=== PATIENT | female | born 1940 | race Caucasian/White ===

== ENCOUNTER 2020-04-30 12:05 | Inpatient (IN) ==
[2020-05-01] MEDS ORDERED: Bisacodyl 10 MG RECTAL SUPPOSITORY RC PRN (18:57)
[2020-05-01] MEDS ORDERED: Insulin DETEMIR 100 UNIT/ML per UNIT SUBQ ONE (21:00)
[2020-05-01] MEDS: Metoprolol XL (24 HR) Succ 50 MG TAB.ER.24H PO SCH (21:08)
[2020-05-01] MEDS: Insulin LISPRO 300 UNITS/3 ML VIAL SUBQ SCH (21:09)
[2020-05-02 05:19] LABS: Basophils % 0.3 %; Eosinophils # 0.2 K/mcL (0.0-0.6); Eosinophils % 2.2 %; Hematocrit 25.4 % (35.3-44.9); Hemoglobin 8.4 g/dL (11.5-15.4); Immature Granulocytes % 0.3 % (0-4); Lymphocytes # 1.4 K/mcL (0.6-4.6); Mean Corpuscular HGB Conc 33.1 g/dL (31.6-35.5); Mean Corpuscular Hemoglobin 31.6 pg (28.0-33.3); Mean Corpuscular Volume 95.5 fL (83.0-100.0); Mean Platelet Volume 11.8 fL (9.4-12.4); Monocytes # 0.8 K/mcL (0.0-1.3); Monocytes % 12.3 %; Neutrophils # 4.3 K/mcL (1.6-8.9); Platelet Count 213 K/mcL (140-400); Red Blood Count 2.66 M/mcL (3.82-4.97); Red Cell Distribution Width 14.6 % (11.5-14.5); Segmented Neutrophils % 63.9 %; White Blood Count 6.7 K/mcL (4.3-11.1)
[2020-05-02 05:34] LABS: Calcium 8.7 mg/dL (8.6-10.3)
[2020-05-02] MEDS ORDERED: *HR* Enoxaparin 30 MG/0.3 ML SYRINGE SQ SCH (06:00)
[2020-05-02] MEDS: Metoprolol XL (24 HR) Succ 50 MG TAB.ER.24H PO SCH ×2 (08:28→20:31)
[2020-05-02] MEDS: Cholecalciferol (D-3) 1,000 UNIT (25MCG) TABLET PO SCH (08:28)
[2020-05-02] MEDS: lisinopriL 10 MG TABLET PO SCH (08:28)
[2020-05-02] MEDS: Magnesium Oxide 400 MG TABLET PO SCH (08:28)
[2020-05-02] MEDS: Aspirin Enteric Coated 81 MG Tablet PO SCH (08:29)
[2020-05-02] MEDS: polyethylene glycoL 3350 17 GM POWD.PACK PO SCH (08:29)
[2020-05-02] MEDS: calcitrioL 0.25 MCG CAPSULE PO SCH (08:29)
[2020-05-02] MEDS: Insulin LISPRO 300 UNITS/3 ML VIAL SUBQ SCH ×4 (08:29→20:31)
[2020-05-02] MEDS: allopurinoL 300 MG TABLET PO SCH (08:29)
[2020-05-02] MEDS: Acetaminophen 325 MG TABLET PO PRN ×2 (12:14→20:30)
[2020-05-02] MEDS: *HR* Rivaroxaban 10 MG TABLET PO SCH (16:07)
[2020-05-02] MEDS: Insulin DETEMIR 100 UNIT/ML X5UNITS SUBQ SCH (20:31)
[2020-05-03] MEDS: Insulin LISPRO 300 UNITS/3 ML VIAL SUBQ SCH ×4 (08:17→20:25)
[2020-05-03] MEDS: Magnesium Oxide 400 MG TABLET PO SCH (08:57)
[2020-05-03] MEDS: calcitrioL 0.25 MCG CAPSULE PO SCH (08:57)
[2020-05-03] MEDS: Aspirin Enteric Coated 81 MG Tablet PO SCH (08:57)
[2020-05-03] MEDS: Cholecalciferol (D-3) 1,000 UNIT (25MCG) TABLET PO SCH (08:57)
[2020-05-03] MEDS: lisinopriL 10 MG TABLET PO SCH (08:58)
[2020-05-03] MEDS: Metoprolol XL (24 HR) Succ 50 MG TAB.ER.24H PO SCH ×2 (08:58→20:22)
[2020-05-03] MEDS: polyethylene glycoL 3350 17 GM POWD.PACK PO SCH (08:58)
[2020-05-03] MEDS: Acetaminophen 325 MG TABLET PO PRN ×2 (08:58→15:36)
[2020-05-03] MEDS: allopurinoL 300 MG TABLET PO SCH (08:58)
[2020-05-03] MEDS: *HR* Rivaroxaban 10 MG TABLET PO SCH (15:36)
[2020-05-03] MEDS: Insulin DETEMIR 100 UNIT/ML X5UNITS SUBQ SCH (20:22)
[2020-05-04] MEDS: Insulin LISPRO 300 UNITS/3 ML VIAL SUBQ SCH ×4 (07:42→20:20)
[2020-05-04] MEDS: Aspirin Enteric Coated 81 MG Tablet PO SCH (07:54)
[2020-05-04] MEDS: allopurinoL 300 MG TABLET PO SCH (07:54)
[2020-05-04] MEDS: polyethylene glycoL 3350 17 GM POWD.PACK PO SCH (07:54)
[2020-05-04] MEDS: Magnesium Oxide 400 MG TABLET PO SCH (07:54)
[2020-05-04] MEDS: Metoprolol XL (24 HR) Succ 50 MG TAB.ER.24H PO SCH ×2 (07:54→20:30)
[2020-05-04] MEDS: Cholecalciferol (D-3) 1,000 UNIT (25MCG) TABLET PO SCH (07:54)
[2020-05-04] MEDS: lisinopriL 10 MG TABLET PO SCH (07:54)
[2020-05-04] MEDS: calcitrioL 0.25 MCG CAPSULE PO SCH (07:55)
[2020-05-04] MEDS: Acetaminophen 325 MG TABLET PO PRN ×2 (13:54→20:29)
[2020-05-04] MEDS: *HR* Rivaroxaban 10 MG TABLET PO SCH (16:49)
[2020-05-04] MEDS: Insulin DETEMIR 100 UNIT/ML X5UNITS SUBQ SCH (20:32)
[2020-05-05] MEDS: Acetaminophen 325 MG TABLET PO PRN ×3 (04:19→20:08)
[2020-05-05] MEDS: Insulin LISPRO 300 UNITS/3 ML VIAL SUBQ SCH ×4 (08:07→20:12)
[2020-05-05] MEDS: Metoprolol XL (24 HR) Succ 50 MG TAB.ER.24H PO SCH ×2 (08:25→20:10)
[2020-05-05] MEDS: allopurinoL 300 MG TABLET PO SCH (08:26)
[2020-05-05] MEDS: Cholecalciferol (D-3) 1,000 UNIT (25MCG) TABLET PO SCH (08:26)
[2020-05-05] MEDS: calcitrioL 0.25 MCG CAPSULE PO SCH (08:26)
[2020-05-05] MEDS: lisinopriL 10 MG TABLET PO SCH (08:26)
[2020-05-05] MEDS: Aspirin Enteric Coated 81 MG Tablet PO SCH (08:26)
[2020-05-05] MEDS: polyethylene glycoL 3350 17 GM POWD.PACK PO SCH (08:26)
[2020-05-05] MEDS: Magnesium Oxide 400 MG TABLET PO SCH (08:26)
[2020-05-05] MEDS: *HR* Rivaroxaban 10 MG TABLET PO SCH (17:11)
[2020-05-05] MEDS: Simethicone 80 MG TAB.CHEW PO PRN (18:07)
[2020-05-05] MEDS: Insulin DETEMIR 100 UNIT/ML X5UNITS SUBQ SCH (20:12)
[2020-05-06] MEDS: Aspirin Enteric Coated 81 MG Tablet PO SCH (06:57)
[2020-05-06] MEDS: Cholecalciferol (D-3) 1,000 UNIT (25MCG) TABLET PO SCH (06:58)
[2020-05-06] MEDS: Acetaminophen 325 MG TABLET PO PRN ×3 (06:59→19:58)
[2020-05-06] MEDS: allopurinoL 300 MG TABLET PO SCH (07:00)
[2020-05-06] MEDS: Metoprolol XL (24 HR) Succ 50 MG TAB.ER.24H PO SCH ×2 (07:00→19:54)
[2020-05-06] MEDS: lisinopriL 10 MG TABLET PO SCH (07:02)
[2020-05-06] MEDS: Magnesium Oxide 400 MG TABLET PO SCH (07:02)
[2020-05-06] MEDS: calcitrioL 0.25 MCG CAPSULE PO SCH (07:03)
[2020-05-06] MEDS: polyethylene glycoL 3350 17 GM POWD.PACK PO SCH ×2 (07:03→21:32)
[2020-05-06] MEDS: Insulin LISPRO 300 UNITS/3 ML VIAL SUBQ SCH ×4 (07:04→20:11)
[2020-05-06] MEDS: Simethicone 80 MG TAB.CHEW PO PRN (07:07)
[2020-05-06] MEDS: *HR* Rivaroxaban 10 MG TABLET PO SCH (15:57)
[2020-05-06] MEDS: Insulin DETEMIR 100 UNIT/ML X5UNITS SUBQ SCH (20:39)
[2020-05-07] MEDS: Acetaminophen 325 MG TABLET PO PRN ×3 (05:17→21:36)
[2020-05-07 06:16] LABS: Hematocrit 24.3 % (35.3-44.9); Hemoglobin 7.8 g/dL (11.5-15.4); Mean Corpuscular HGB Conc 32.1 g/dL (31.6-35.5); Mean Corpuscular Hemoglobin 30.7 pg (28.0-33.3); Mean Corpuscular Volume 95.7 fL (83.0-100.0); Mean Platelet Volume 10.7 fL (9.4-12.4); Platelet Count 295 K/mcL (140-400); Red Blood Count 2.54 M/mcL (3.82-4.97); Red Cell Distribution Width 14.2 % (11.5-14.5); White Blood Count 5.4 K/mcL (4.3-11.1)
[2020-05-07 06:53] LABS: Albumin/Globulin Ratio 1.1 (1.1-2.2); Calcium 8.3 mg/dL (8.6-10.3); Globulin 2.8 g/dL (2.4-3.5); Magnesium 1.4 mg/dL (1.6-2.6); Potassium 4.1 mEq/L (3.5-5.1); Total Protein 5.8 g/dL (6.4-8.9)
[2020-05-07 06:59] LABS: Bilirubin,Total 0.4 mg/dL (0.3-1.0)
[2020-05-07] MEDS: allopurinoL 300 MG TABLET PO SCH (08:24)
[2020-05-07] MEDS: Aspirin Enteric Coated 81 MG Tablet PO SCH (08:24)
[2020-05-07] MEDS: lisinopriL 10 MG TABLET PO SCH (08:24)
[2020-05-07] MEDS: Cholecalciferol (D-3) 1,000 UNIT (25MCG) TABLET PO SCH (08:24)
[2020-05-07] MEDS: calcitrioL 0.25 MCG CAPSULE PO SCH (08:24)
[2020-05-07] MEDS: Magnesium Oxide 400 MG TABLET PO SCH (08:24)
[2020-05-07] MEDS: Metoprolol XL (24 HR) Succ 50 MG TAB.ER.24H PO SCH ×2 (08:24→21:36)
[2020-05-07] MEDS: polyethylene glycoL 3350 17 GM POWD.PACK PO SCH (08:25)
[2020-05-07] MEDS: Insulin LISPRO 300 UNITS/3 ML VIAL SUBQ SCH ×4 (08:25→21:36)
[2020-05-07] MEDS: lisinopriL 20 MG TABLET PO SCH (12:26)
[2020-05-07] MEDS: *HR* Rivaroxaban 10 MG TABLET PO SCH (17:04)
[2020-05-07] MEDS: Insulin DETEMIR 100 UNIT/ML X5UNITS SUBQ SCH (21:41)
[2020-05-07] MEDS ORDERED: hydrALAZINE 25 MG TABLET PO ONE (23:29)
[2020-05-08] MEDS: Insulin LISPRO 300 UNITS/3 ML VIAL SUBQ SCH ×4 (08:14→21:17)
[2020-05-08] MEDS: calcitrioL 0.25 MCG CAPSULE PO SCH (08:49)
[2020-05-08] MEDS: Cholecalciferol (D-3) 1,000 UNIT (25MCG) TABLET PO SCH (08:49)
[2020-05-08] MEDS: polyethylene glycoL 3350 17 GM POWD.PACK PO SCH (08:49)
[2020-05-08] MEDS: Metoprolol XL (24 HR) Succ 50 MG TAB.ER.24H PO SCH ×2 (08:49→21:10)
[2020-05-08] MEDS: Aspirin Enteric Coated 81 MG Tablet PO SCH (08:50)
[2020-05-08] MEDS: allopurinoL 300 MG TABLET PO SCH (08:50)
[2020-05-08] MEDS: Magnesium Oxide 400 MG TABLET PO SCH (08:50)
[2020-05-08] MEDS: lisinopriL 20 MG TABLET PO SCH (08:50)
[2020-05-08] MEDS: Acetaminophen 325 MG TABLET PO PRN ×2 (14:35→21:10)
[2020-05-08] MEDS: *HR* Rivaroxaban 10 MG TABLET PO SCH (17:00)
[2020-05-08] MEDS: Insulin DETEMIR 100 UNIT/ML X5UNITS SUBQ SCH (21:13)
[2020-05-09] MEDS: Acetaminophen 325 MG TABLET PO PRN ×2 (06:38→22:05)
[2020-05-09] MEDS: Insulin LISPRO 300 UNITS/3 ML VIAL SUBQ SCH ×3 (08:21→16:59)
[2020-05-09] MEDS: polyethylene glycoL 3350 17 GM POWD.PACK PO SCH (09:12)
[2020-05-09] MEDS: Aspirin Enteric Coated 81 MG Tablet PO SCH (09:13)
[2020-05-09] MEDS: calcitrioL 0.25 MCG CAPSULE PO SCH (09:13)
[2020-05-09] MEDS: lisinopriL 20 MG TABLET PO SCH (09:13)
[2020-05-09] MEDS: Cholecalciferol (D-3) 1,000 UNIT (25MCG) TABLET PO SCH (09:14)
[2020-05-09] MEDS: Metoprolol XL (24 HR) Succ 50 MG TAB.ER.24H PO SCH ×2 (09:14→22:04)
[2020-05-09] MEDS: Magnesium Oxide 400 MG TABLET PO SCH (09:14)
[2020-05-09] MEDS: allopurinoL 300 MG TABLET PO SCH (12:36)
[2020-05-09] MEDS: *HR* Rivaroxaban 10 MG TABLET PO SCH (16:59)
[2020-05-09] MEDS: Insulin DETEMIR 100 UNIT/ML X5UNITS SUBQ SCH (22:09)
[2020-05-10] MEDS: Insulin LISPRO 300 UNITS/3 ML VIAL SUBQ SCH ×5 (00:11→20:59)
[2020-05-10] MEDS: Acetaminophen 325 MG TABLET PO PRN ×2 (04:56→14:00)
[2020-05-10 05:34] LABS: Hemoglobin 8.5 g/dL (11.5-15.4); Mean Corpuscular HGB Conc 31.5 g/dL (31.6-35.5); Mean Corpuscular Hemoglobin 30.5 pg (28.0-33.3); Mean Corpuscular Volume 96.8 fL (83.0-100.0); Mean Platelet Volume 10.2 fL (9.4-12.4); Platelet Count 381 K/mcL (140-400); Red Blood Count 2.79 M/mcL (3.82-4.97); Red Cell Distribution Width 14.3 % (11.5-14.5); White Blood Count 7.6 K/mcL (4.3-11.1)
[2020-05-10 05:50] LABS: Albumin 3.4 g/dL (3.5-5.7); Albumin/Globulin Ratio 1.2 (1.1-2.2); Bilirubin,Total 0.4 mg/dL (0.3-1.0); Calcium 8.9 mg/dL (8.6-10.3); Globulin 2.9 g/dL (2.4-3.5); Magnesium 1.6 mg/dL (1.6-2.6); Potassium 4.6 mEq/L (3.5-5.1); Total Protein 6.3 g/dL (6.4-8.9)
[2020-05-10] MEDS: allopurinoL 300 MG TABLET PO SCH (08:35)
[2020-05-10] MEDS: Metoprolol XL (24 HR) Succ 50 MG TAB.ER.24H PO SCH ×2 (08:35→20:56)
[2020-05-10] MEDS: Cholecalciferol (D-3) 1,000 UNIT (25MCG) TABLET PO SCH (08:36)
[2020-05-10] MEDS: Aspirin Enteric Coated 81 MG Tablet PO SCH (08:36)
[2020-05-10] MEDS: calcitrioL 0.25 MCG CAPSULE PO SCH (08:36)
[2020-05-10] MEDS: lisinopriL 20 MG TABLET PO SCH (08:36)
[2020-05-10] MEDS: Magnesium Oxide 400 MG TABLET PO SCH (08:36)
[2020-05-10] MEDS: polyethylene glycoL 3350 17 GM POWD.PACK PO SCH (08:37)
[2020-05-10] MEDS: *HR* Rivaroxaban 10 MG TABLET PO SCH (16:53)
[2020-05-10] MEDS: Insulin DETEMIR 100 UNIT/ML X5UNITS SUBQ SCH (20:59)
[2020-05-11] MEDS: Acetaminophen 325 MG TABLET PO PRN ×3 (06:34→21:35)
[2020-05-11] MEDS: calcitrioL 0.25 MCG CAPSULE PO SCH (08:35)
[2020-05-11] MEDS: Aspirin Enteric Coated 81 MG Tablet PO SCH (08:35)
[2020-05-11] MEDS: lisinopriL 20 MG TABLET PO SCH (08:35)
[2020-05-11] MEDS: Metoprolol XL (24 HR) Succ 50 MG TAB.ER.24H PO SCH ×2 (08:35→21:36)
[2020-05-11] MEDS: allopurinoL 300 MG TABLET PO SCH (08:35)
[2020-05-11] MEDS: polyethylene glycoL 3350 17 GM POWD.PACK PO SCH (08:35)
[2020-05-11] MEDS: Insulin LISPRO 300 UNITS/3 ML VIAL SUBQ SCH ×4 (08:35→21:04)
[2020-05-11] MEDS: Magnesium Oxide 400 MG TABLET PO SCH (08:35)
[2020-05-11] MEDS: Cholecalciferol (D-3) 1,000 UNIT (25MCG) TABLET PO SCH (08:35)
[2020-05-11] MEDS: *HR* Rivaroxaban 10 MG TABLET PO SCH (16:57)
[2020-05-11] MEDS: Insulin DETEMIR 100 UNIT/ML X5UNITS SUBQ SCH (21:36)
[2020-05-11] MEDS: Simethicone 80 MG TAB.CHEW PO PRN (21:54)
[2020-05-12] MEDS: Acetaminophen 325 MG TABLET PO PRN ×3 (04:17→20:10)
[2020-05-12 05:54] LABS: Basophils % 0.3 %; Eosinophils # 0.2 K/mcL (0.0-0.6); Hematocrit 22.6 % (35.3-44.9); Hemoglobin 7.3 g/dL (11.5-15.4); Immature Granulocytes % 0.3 % (0-4); Lymphocytes # 1.6 K/mcL (0.6-4.6); Lymphocytes % 25.1 %; Mean Corpuscular HGB Conc 32.3 g/dL (31.6-35.5); Mean Corpuscular Hemoglobin 31.1 pg (28.0-33.3); Mean Corpuscular Volume 96.2 fL (83.0-100.0); Mean Platelet Volume 9.9 fL (9.4-12.4); Monocytes # 0.7 K/mcL (0.0-1.3); Monocytes % 11.7 %; Neutrophils # 3.7 K/mcL (1.6-8.9); Platelet Count 312 K/mcL (140-400); Red Blood Count 2.35 M/mcL (3.82-4.97); Red Cell Distribution Width 14.4 % (11.5-14.5); Segmented Neutrophils % 59.6 %; White Blood Count 6.3 K/mcL (4.3-11.1)
[2020-05-12 06:08] LABS: Calcium 8.5 mg/dL (8.6-10.3); Potassium 4.6 mEq/L (3.5-5.1)
[2020-05-12] MEDS: Insulin LISPRO 300 UNITS/3 ML VIAL SUBQ SCH ×4 (08:04→20:08)
[2020-05-12] MEDS: lisinopriL 20 MG TABLET PO SCH (08:10)
[2020-05-12] MEDS: calcitrioL 0.25 MCG CAPSULE PO SCH (08:10)
[2020-05-12] MEDS: Aspirin Enteric Coated 81 MG Tablet PO SCH (08:10)
[2020-05-12] MEDS: Magnesium Oxide 400 MG TABLET PO SCH (08:10)
[2020-05-12] MEDS: Cholecalciferol (D-3) 1,000 UNIT (25MCG) TABLET PO SCH (08:10)
[2020-05-12] MEDS: Metoprolol XL (24 HR) Succ 50 MG TAB.ER.24H PO SCH ×2 (08:10→20:09)
[2020-05-12] MEDS: polyethylene glycoL 3350 17 GM POWD.PACK PO SCH (08:10)
[2020-05-12] MEDS: allopurinoL 300 MG TABLET PO SCH (08:11)
[2020-05-12] MEDS: *HR* Rivaroxaban 10 MG TABLET PO SCH (17:12)
[2020-05-12] MEDS: Insulin DETEMIR 100 UNIT/ML X5UNITS SUBQ SCH (20:08)
[2020-05-13] MEDS: Acetaminophen 325 MG TABLET PO PRN (04:26)
[2020-05-13 06:05] LABS: Basophils % 0.4 %; Eosinophils # 0.2 K/mcL (0.0-0.6); Hematocrit 25.4 % (35.3-44.9); Hemoglobin 8.3 g/dL (11.5-15.4); Immature Granulocytes % 0.6 % (0-4); Lymphocytes # 1.9 K/mcL (0.6-4.6); Lymphocytes % 26.6 %; Mean Corpuscular HGB Conc 32.7 g/dL (31.6-35.5); Mean Corpuscular Hemoglobin 31.1 pg (28.0-33.3); Mean Corpuscular Volume 95.1 fL (83.0-100.0); Mean Platelet Volume 11.1 fL (9.4-12.4); Monocytes # 0.7 K/mcL (0.0-1.3); Monocytes % 9.9 %; Neutrophils # 4.2 K/mcL (1.6-8.9); Platelet Count 354 K/mcL (140-400); Red Blood Count 2.67 M/mcL (3.82-4.97); Red Cell Distribution Width 14.1 % (11.5-14.5); Segmented Neutrophils % 59.5 %; White Blood Count 7.1 K/mcL (4.3-11.1)
[2020-05-13 06:23] LABS: Calcium 8.8 mg/dL (8.6-10.3); Potassium 4.2 mEq/L (3.5-5.1)
[2020-05-13 07:29] VITALS: BP 147/76
[2020-05-13] MEDS: lisinopriL 20 MG TABLET PO SCH (07:48)
[2020-05-13] MEDS: Insulin LISPRO 300 UNITS/3 ML VIAL SUBQ SCH ×2 (07:48→11:29)
[2020-05-13] MEDS: Aspirin Enteric Coated 81 MG Tablet PO SCH (07:48)
[2020-05-13] MEDS: Metoprolol XL (24 HR) Succ 50 MG TAB.ER.24H PO SCH (07:48)
[2020-05-13] MEDS: calcitrioL 0.25 MCG CAPSULE PO SCH (07:49)
[2020-05-13] MEDS: allopurinoL 300 MG TABLET PO SCH (07:49)
[2020-05-13] MEDS: Cholecalciferol (D-3) 1,000 UNIT (25MCG) TABLET PO SCH (07:49)
[2020-05-13] MEDS: Magnesium Oxide 400 MG TABLET PO SCH (07:49)
[2020-05-13] MEDS: polyethylene glycoL 3350 17 GM POWD.PACK PO SCH (07:49)
== END 2020-05-13 14:11 | disposition home health service (06) | DRG 560 ==
LOC: INPGRE 05-01 17:53
PROVIDERS: ADMIT Family Medicine; ATTEND Family Medicine